=== PATIENT | female | born 1965 | race Caucasian/White ===

== ENCOUNTER 2017-04-07 14:39 | Outpatient (CLI) | payer OTHER ==
[2017-04-07 15:05] LABS: BASOPHILS % 0.9 (0.0-1.5); EOSINOPHILS % 2.2 % (0.0-6.8); MEAN CORPUSCULAR VOLUME 94.1 fl (80.0-100.0); MONOCYTES % 6.1 % (0.0-11.0); NEUTROPHILS # 4.5 # k/uL (1.4-7.7)
[2017-04-07 15:41] LABS: eGFR (African) > 60; eGFR (Non-African) > 60
--- NOTE | 2017-04-08 15:40 | Diagnostic Imaging Report ---
AMBER TORRES [facility] [id number] [facility] [address] [address] Report Submission Date: Apr 07, 2017 3:33:38 PM CDT Patient Study Name: GAURANG AVILES Date: Apr 07, 2017 3:02:52 PM CDT Modality Type: CR Gender: F Description: LOWER EXTREMITY : 63 Institution: [facility] Physician: AMBER TORRES Examination: Plain film knee wall of the History: Knee discomfort Findings: 3 views of the knee demonstrates normal cortical margins. Tibial spine spurring. Medial joint space narrowing. No fracture. No dislocation. No joint effusion. No soft tissue irregularity. Impression: Early degenerative changes. No acute osseous abnormality. Electronically signed on Apr 07, 2017 3:33:38 PM CDT by: Tez DAVIS
== END 2017-04-07 14:40 ==
LOC: RT 14:39
PROVIDERS: ATTEND Family Medicine
DX: R07.9 Chest pain, unspecified (principal); Z00.00 Encounter for general adult medical examination without abnormal findings; Z13.29 Encounter for screening for other suspected endocrine disorder; Z13.0 Encounter for screening for diseases of the blood and blood-forming organs and certain disorders involving the immune mechanism; M25.562 Pain in left knee
CPT/HCPCS: 36415; 73562; 80053; 80061; 84443; 85025